=== PATIENT | female | born 2000 | race Caucasian/White ===

== ENCOUNTER → 2018-10-15 | Outpatient (CLI) | payer MEDICAID ==
--- NOTE | 2018-10-15 14:49 | RADIOLOGY REPORT (SQ) ---
EXAM DESCRIPTION: U/S OB LIMITED COMPLETED DATE/TIME: 10/15/2018 2:32 pm REASON FOR STUDY: Z34.02 ENCNTR FOR SUPRVSN OF NORMAL FIRST PREG, SECOND TRIMESTER Z34.02 ENCNTR FO R SUPRVSN OF NORMAL FIRST PREG, SECOND TRIME COMPARISON: None. TECHNIQUE: Limited transabdominal grayscale ultrasound for evaluation of specific requested obstetri marcell parameters. LIMITATIONS: None. FINDINGS: CERVICAL LENGTH: 3.2 cm Closed. NIYA: 5.8 cm cm. FHR: 147 beats per minute. PRESENTATION: Breech. PLACENTA: Anterior placenta. ANATOMY: Not assessed OTHER: HENRY by ultrasound: 03/25/2019: EGA by ultrasound: 17 weeks 0 days. IMPRESSION: 1. LIMITED OBSTETRICAL ULTRASOUND WITH MEASURED PARAMETERS DELINEATED ABOVE. Trimester of : Second trimester - 13 weeks 1 day to 27 weeks 6 days. TECHNICAL DOCUMENTATION: JOB ID: [id number] [employer]- All Rights Reserved Reading location - IP/workstation name: [email or web address]
== END ==
LOC: RAD 14:00
PROVIDERS: ATTEND Midwife
DX: Z34.02 Encounter for supervision of normal first pregnancy, second trimester (principal)
CPT/HCPCS: 76815